=== PATIENT | female | born 1990 | race Caucasian/White ===

== ENCOUNTER → 2023-10-13 12:40 | Outpatient (CLI) | payer OTHER, MEDICAID, SELFPAY ==
--- NOTE | 2023-10-13 12:42 | DI.US.S_ITS ---
PROCEDURE: US PELVIC COMPLETE INDICATIONS: vaginal bleeding after 1st tri Ab in February, retained POC? TECHNIQUE: Real-time scanning was performed of the pelvic organs, with image documentation. Additional endovaginal scanning was necessary due to incomplete visualization of the adnexal and endometrial structures by transabdominal scanning. COMPARISON: None. FINDINGS: Uterus: Uterus is anteverted and normal in size at 7.7 x 5.2 x 4.1 cm. The myometrium is homogeneous. The endometrium measures 3 mm combined thickness. There is a focal area of mildly hyperechoic tissue within the fundus of the uterus in somewhat close proximity to the endometrial cavity. This measures approximately 1.2 x 1.2 x 1.1 cm. Findings may represent an intramural uterine fibroid. There is associated vascularity. Ovaries: The right ovary measures 2.9 x 2.8 x 2.3 cm, with a calculated ovarian volume of 9.8 cc. The left ovary measures 3.5 x 2.3 x 1.5 cm, with a calculated ovarian volume of 6.3 cc. The ovaries have a normal sonographic appearance. No adnexal masses are seen. Other: No pathologic free abdominal or pelvic fluid. IMPRESSION: 1. Pelvis without acute sonographic abnormalities. 2. A 1.2 cm mildly echogenic, vascular focus within the uterine fundus likely representing an intramural uterine fibroid. 3. Unremarkable appearance of the bilateral ovaries. We strive to produce accurate, complete, and clear reports of imaging services. To assist us in improving patient care, this report was composed using standard report templates and voice recognition software. Therefore, it may contain abnormal punctuation, insertions and/or omissions. Occasional wrong-word or sound-alike substitutions may occur. Though we review the report and make efforts to correct it, we do recommend that the report be read carefully in proper context to recognize any text inaccuracies. Dictated by: Danny Platt M.D. on 10/13/2023 at 15:10 Approved by: Danny Platt M.D. on 10/13/2023 at 15:15
== END ==
LOC: US 12:40
PROVIDERS: PCP Family Medicine; Referring Provider Family Medicine; Visit Provider Family Medicine
DX: N92.3 Ovulation bleeding (principal)
CPT/HCPCS: 76830; 76856

== ENCOUNTER → 2024-02-20 13:20 | Outpatient (ROUT) | payer SELFPAY | PROVIDERS: PCP Family Medicine | DX: Z02.89 Encounter for other administrative examinations (principal) ==